=== PATIENT | male | born 1960 | race Caucasian/White ===

== ENCOUNTER → 2021-12-27 | Outpatient (CLI) | payer OTHER ==
[~2021-12-27] MED LIST: LATA0.0015; TIMOXEOPD
== END ==
LOC: M OPP 09:49
PROVIDERS: ATTEND Anesthesiology
DX: Z01.812 Encounter for preprocedural laboratory examination (principal); Z11.52 Encounter for screening for COVID-19; Z12.11 Encounter for screening for malignant neoplasm of colon

== ENCOUNTER 2022-01-01 09:55 | Day surgery (SDC) | payer OTHER ==
[~2022-01-01] VITALS: Ht 185.4 cm; Wt 93.4 kg
[~2022-01-01 09:55] MED LIST changes: +NS 1,000 ML IV ONE
[2022-01-01] MEDS ORDERED: LIDOCAINE 2% 100MG/5ML SDV (FOR ANES.) As Ordered ONE (11:26)
[2022-01-01] MEDS ORDERED: propofoL 200 MG/20 ML VIAL As Ordered ONE (11:26)
[2022-01-01] MEDS ORDERED: GLYCOPYRROLATE INJ 0.2 MG/ML 2 ML VIAL As Ordered ONE (11:26)
[2022-01-01 11:53] VITALS: BP 114/70
== END 2022-01-01 11:55 | disposition home or self-care (01) ==
LOC: M OPP 09:55
PROVIDERS: ATTEND Surgery
DX: Z12.11 Encounter for screening for malignant neoplasm of colon (principal); D12.6 Benign neoplasm of colon, unspecified

== ENCOUNTER 2025-02-22 08:26 | Day surgery (SDC) | payer OTHER ==
[~2025-02-22] VITALS: Ht 185.4 cm; Wt 98.4 kg
[~2025-02-22 08:26] MED LIST changes: +CLAR10CA3 PO; +MIDAZOLAM INJ 2MG/2ML VIAL As Ordered ONE; -NS 1,000 ML IV ONE; +PHENYLEPHRINE 10% OPHTH SOL 5ML OS PRN; -TIMOXEOPD; +TIMOXEOPD OU; +TROPICAMIDE 1% OPHTH SOLN 15ML OS SCH; +fentaNYL 100 MCG/2 ML INJECTION As Ordered ONE
[2025-02-22] MEDS: CYCLOPENTOLATE 1% OPHTH SOLN 2ML BTL OS SCH (08:57)
[2025-02-22] MEDS: PHENYLEPHRINE 2.5% OPHTH SOL 2ML OS SCH (08:57)
[2025-02-22] MEDS: OFLOXACIN 0.3 % (OCUFLOX) OPTH SOL 5ML OS ONE (08:57)
[2025-02-22] MEDS: LIDOCAINE 3.5 % 1ML OPHTH TOPICAL GEL OU ONE (08:57)
[2025-02-22] MEDS: BSS IRRIG/VANCO(10MG)/TOBRA(5MG)/EPINEPH(1:1000-0.5CC)500ML BAG-ORONLY As Ordered ONE (09:57)
[2025-02-22] MEDS: LIDOCAINE 1% SDV 5ML VIAL As Ordered ONE (09:57)
[2025-02-22] MEDS: CEFUROXIME 1MG/0.1ML INTRACAMERAL INJ As Ordered ONE (10:01)
[2025-02-22 10:15] VITALS: BP 133/84; TEMP 96.7; O2SAT 96
== END 2025-02-22 10:31 | disposition home or self-care (01) ==
LOC: M SDC 08:26
PROVIDERS: ATTEND Ophthalmology
DX: H25.12 Age-related nuclear cataract, left eye (principal)
CPT/HCPCS: 66984; J0697; J2250; J3010; V2632